=== PATIENT | male | born 1955 | race Caucasian/White ===

== ENCOUNTER 2021-03-14 15:19 | Outpatient (REF) | payer OTHER, MEDICARE, SELFPAY ==
[2021-03-14 16:06] LABS: Alanine Aminotransferase 29 U/L (0-40); Anion Gap 13 (12-20); Aspartate Amino Transferase 27 U/L (5-37); Blood Urea Nitrogen 14 mg/dL (9-16); Carbon Dioxide 26 mmol/L (22-29); Chloride 108 mmol/L (96-108); Estimated Glomerular Filt Rate 60; Potassium 4.6 mmol/L (3.3-5.1); Sodium 142 mmol/L (135-145)
== END 2021-03-14 15:20 | disposition home or self-care (01) ==
LOC: HO.LAB 15:19
PROVIDERS: PCP Family Medicine; Visit Provider Family Medicine
DX: I10 Essential (primary) hypertension (principal); I25.10 Atherosclerotic heart disease of native coronary artery without angina pectoris; K75.81 Nonalcoholic steatohepatitis (NASH)
CPT/HCPCS: 36415; 80051; 82565; 84450; 84460; 84520

== ENCOUNTER 2021-10-12 10:45 | Outpatient (RCR) | payer OTHER, SELFPAY ==
[2021-09-29 14:36] VITALS: BMI 31.5
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
--- NOTE | 2021-10-02 15:20 | PC.NURSE ---
Case opened in treatment team.
--- NOTE | 2021-10-03 11:40 | PC.NURSE ---
I received a call from pt. He sounded overwhelmed and a bit angry and reported feeling emotionally triggered after a peer and another clinician were staring at him on the screen while he was fumbling to try to exit the group (as he was in the wrong online group). He reported rage and expressed concerns about his ability to continue in the program given how easily triggered he is. He became tearful and spoke about excessive daily energy spent on containing his anger after feeling triggered. He also shared that he thinks he knows another client (the one that he felt was staring at him) from AA meetings a long time ago, and asked if he could not be in a morning process group with her. (He was initially very reluctant to tell me the nature of his relationship with the person, citing AA confidentiality). I explained how the groups work, and that if there are less than 12 clients, the process group might be combined. I offered to refer pt to another PHP, but he said he wants to wait it out and see how he feels. I also explained that its impossible to tell who is giving who eye contact on the screen, as each person is looking at an image on screen rather than an actual person, and he reported feeling greatly comforted by this. Throughout the discussion, pt repeatedly attempted to reassure me that he wont lash out at anyone despite feeling rage. Pt agreed to take the rest of the group off to ground self, and said he'd return to the 3rd group.
--- NOTE | 2021-10-05 15:36 | P.PNPSP_ITS ---
Subjective Subjective Date of Service: 10/05/21 Reason For Visit: PTSD Guardianship: No Medical Problems Affecting Mental Status: No Interim History: Describes mood as ?I am good?. Reports finding PHP helpful. Denies any thoughts of harm to self or others. Is not interested in any psychiatric medications at this time, but would rather try therapy 1st. Medication Compliance: Yes (Takes medical medications as prescribed, currently not on any psychiatric meds) Side effects from medications: No Attending Groups: Yes Review of Systems Acute medical concerns: No Medical Review of Systems: unchanged Review of Systems Review of Systems Yes all other systems are reviewed and are negative Constitutional: Reports no additional constitutional complaints Mental Status Exam Mental Status Exam Narrative: Well developed, overweight male, in NAD. No abnormal movements noted, no tics/tremors. Cooperative and attentive throughout encounter. Patient Appearance: Appropriate Patient Orientation: Person, Place, Time and Situation Level of Consciousness: Appropriate Patient Behavior: Cooperative and Good Eye Contact Mood Description: Calm Affect Description: Appropriate and Anxious Patient Cognition Impaired: No Ability to Follow Directions: Good Speech Pattern: Clear, Appropriate, Coherent and Excessive Memory Description: Intact Hallucinations: None Thought Process: Intact Thought Content: positive for Intact Depressive Symptoms: Increased Irritability, Loss of Int. in Activity, Feelings of Guilt and Unhappiness Judgement: Fair Diagnostics Vital Signs (24Hr): BMI result Body Mass Index 31.5 Assessment & Plan Assessment & Plan (1) Post-traumatic stress disorder, chronic: Status: Acute Code(s): F43.12 - Post-traumatic stress disorder, chronic Assessment and Plan: Patient reports he feels his symptoms are improved since last week. He reports that he has found it difficult to adjust to format of PHP, but now he is beginning to feel more comfortable. He says that he had a rough day in the program yesterday, but is feeling more even today. He states that he is working hard on his responses and behavior. No reported outbursts of anger. He states that he feels his symptoms are not really any type of depression or other mood disorder but are more trauma related. No thoughts of SI, no thoughts of harm to self or others at this time, no safety concern. Denies nightmares, flash backs at this time. Discussed psychiatric medications. He states he is not opposed to medications, but that he wishes to try therapy 1st. Discussed natural treatments, including supplements such as omega-3 fatty acid, Saint Dylan's Wort, etc. he states he has taken supplements in the past, and will research this further. (2) Persistent mood [affective] disorder, unspecified: Status: Acute Code(s): F34.9 - Persistent mood [affective] disorder, unspecified Plan 1. Continue with current [facility] plan of care. 2. Follow-up as per protocol. Patient educated on: diagnosis, medication risk/benefits and therapeutic strategies Informed Consent: understands Reason for contiued partial hosp. stay Substantial Risk for: inability to function and rapid decompensation Certification I certify that partial hospital treatment is medically necessary due to the symptoms and problems resulting from the patient's mental illness and the failure to treat the patient at the partial hospital level of care would likely result in the patient requiring inpatient psychiatric care which could not be prevented at a less intensive level of care. I spent minutes with the patient and/or on the patient floor today, greater than?50% of which was spent counseling/coordinating care. Discharge Plan Discharge Attending provider: Wesley Craft Medications: No Action metoprolol succinate 50 mg Tablet Extended Release 24 Hr 50 mg PO DAILY 0RF aspirin 81 mg Tablet 81 mg PO DAILY 0RF Telehealth Telehealth Location of provider rendering services: practice address Location of patient: address on file Patient Identification confirmed using: Name, : Yes Telehealth method: video Patient verbally consented to treatment: Yes Patient verbally consented to billing insurance company: Yes Patient informed of any privacy concerns related to visit: Yes Time spent with patient (mins): 20
--- NOTE | 2021-10-12 12:07 | PC.NURSE ---
Patient scheduled to discharge for PHP today. Denied SI or thoughts to harm himself. Reviewed patient medications with patient. He reports taking medications as prescribed.
--- NOTE | 2021-10-12 16:02 | PC.NURSE ---
I called pt several times to review discharge info and he did not answer or call back. I left him a message to please call.
--- NOTE | 2021-10-12 16:04 | PC.NURSE ---
I left a message for Atul Coleman, [employer], ([phone]) pt's therapist, letting him know of pt's successful discharge from [facility], and about his clinical presentation and status. I let him know that pt has not responded to my efforts to review discharge material and discuss aftercare plans. I gave him the number for WILLIE Rosenbaum, DBT coordinator at [facility], and recommended this for the client should decide he is interested.
--- NOTE | 2021-10-12 17:09 | P.PNPSP_ITS ---
Subjective Subjective Date of Service: 10/12/21 Reason For Visit: PTSD Guardianship: No Medical Problems Affecting Mental Status: No Interim History: Patient reports that he is doing better , with improved mood and less anxiety. Reports that he feels he has benefited from being in [facility] program, but feels now he is ready to discharge. No thoughts of harm to self or others, no safety concerns. Attending Groups: Yes Review of Systems Acute medical concerns: No Medical Review of Systems: unchanged Review of Systems Review of Systems Yes all other systems are reviewed and are negative Constitutional: Reports no additional constitutional complaints Mental Status Exam Mental Status Exam Narrative: Met with patient on telephone, voice was articulate, normal rate and volume. No evidence of any type of distress. Appeared to have stable mood at this time. Denies any thought of harm to self or others, no safety concern. Patient Orientation: Person, Place, Time and Situation Level of Consciousness: Appropriate Patient Behavior: Cooperative Mood Description: Calm Affect Description: Appropriate Patient Cognition Impaired: No Ability to Follow Directions: Excellent Speech Pattern: Clear, Appropriate and Coherent Memory Description: Intact Hallucinations: None Thought Process: Intact, Goal Oriented and Linear Thought Content: positive for Intact, positive for Goal Oriented and positive for Linear Judgement: Good Diagnostics Vital Signs (24Hr): BMI result Body Mass Index 31.5 Assessment & Plan Assessment & Plan (1) Post-traumatic stress disorder, chronic: Status: Acute Code(s): F43.12 - Post-traumatic stress disorder, chronic Assessment and Plan: Patient reports overall feeling much better, states that his anxiety has lessened considerably. He feels stable for discharge at this time. He did have several questions regarding use of benzodiazepines versus SSRIs to help manage feeling anxious, with angry outbursts at times. Use of each medication was discussed fully, including risks, benefits, alternatives. He states that he is considering speaking with his therapist further about this. Currently takes no medications at this time, and wishes to explore it further in therapy as outpatient. (2) Persistent mood [affective] disorder, unspecified: Status: Acute Code(s): F34.9 - Persistent mood [affective] disorder, unspecified (3) Alcohol use disorder, severe, in sustained remission: Status: Acute Code(s): F10.21 - Alcohol dependence, in remission Plan 1. Patient appears stable for discharge from [facility] at this time. 2. Patient to follow-up with outpatient providers going forward. Patient educated on: diagnosis, medication risk/benefits and therapeutic strategies Informed Consent: understands Reason for contiued partial hosp. stay Substantial Risk for: stable for discharge Certification I certify that partial hospital treatment is medically necessary due to the symptoms and problems resulting from the patient's mental illness and the failure to treat the patient at the partial hospital level of care would likely result in the patient requiring inpatient psychiatric care which could not be prevented at a less intensive level of care. I spent minutes with the patient and/or on the patient floor today, greater than?50% of which was spent counseling/coordinating care. Discharge Plan Discharge Attending provider: Wesley Craft Medications: No Action metoprolol succinate 50 mg Tablet Extended Release 24 Hr 50 mg PO DAILY 0RF aspirin 81 mg Tablet 81 mg PO DAILY 0RF Stand Alone Forms: Patient Portal Discharge page Telehealth Telehealth Location of provider rendering services: practice address Location of patient: address on file Patient Identification confirmed using: Name, : Yes Telehealth method: voice only Patient verbally consented to treatment: Yes Patient verbally consented to billing insurance company: Yes Patient informed of any privacy concerns related to visit: Yes Time spent with patient (mins): 15
== END 2021-10-12 23:59 | disposition home or self-care (01) ==
LOC: HO.PHPA 10:45
PROVIDERS: Visit Provider Psychiatry & Neurology Psychiatry
DX: F43.12 Post-traumatic stress disorder, chronic (principal); F34.9 Persistent mood [affective] disorder, unspecified; F10.21 Alcohol dependence, in remission
CPT/HCPCS: 90791; 90853

== ENCOUNTER 2021-10-12 16:46 | Outpatient (REF) | payer OTHER, SELFPAY ==
[2021-10-12 17:49] LABS: Anion Gap 14 (12-20); Blood Urea Nitrogen 14 mg/dL (9-16); Carbon Dioxide 30 mmol/L (22-29); Chloride 104 mmol/L (96-108); Estimated Glomerular Filt Rate > 60; Potassium 4.6 mmol/L (3.3-5.1); Sodium 143 mmol/L (135-145)
== END 2021-10-12 16:47 | disposition home or self-care (01) ==
LOC: HO.LAB 16:46
PROVIDERS: PCP Family Medicine; Visit Provider Family Medicine
DX: I10 Essential (primary) hypertension (principal)
CPT/HCPCS: 36415; 80051; 82565; 84520

== ENCOUNTER 2022-01-02 15:02 | Outpatient (REF) | payer OTHER, SELFPAY ==
--- NOTE | ~2022-01-02 | XR_ITS ---
EXAMINATION: XR SHOULDER, LEFT CLINICAL INFORMATION: Left shoulder pain COMPARISON: None TECHNIQUE: AP external rotation, Grashey, scapular Y, and axillary views of the left shoulder. FINDINGS: The bones and soft tissues are normal. No fracture. There is mild loss of glenohumeral and AC joint space with periarticular spurring. No bony erosive changes seen. No soft tissue calcification or soft tissue swelling. No visible acute fracture or dislocation. XR/XR shoulder LT min 2V IMPRESSION: Mild degenerative changes left shoulder.
== END 2022-01-02 15:03 | disposition home or self-care (01) ==
LOC: HO.XRAY 15:02
PROVIDERS: PCP Family Medicine; Visit Provider Family Medicine
DX: M25.512 Pain in left shoulder (principal)
CPT/HCPCS: 73030

== ENCOUNTER 2022-06-01 13:20 | Outpatient (REF) | payer OTHER, SELFPAY ==
--- NOTE | ~2022-06-01 | XR_ITS ---
EXAMINATION: XR CERVICAL SPINE CLINICAL INFORMATION: Neck pain COMPARISON: Previous x-ray April 2017 TECHNIQUE: 6 views of the cervical spine, inclusive of bilateral oblique views, were obtained. FINDINGS: There are new postsurgical changes from ACDF at C5-C6 and C6-C7. Mild 2 mm anterior subluxation of C3 with respect to C4. Bone alignment is otherwise normal. No fracture or dislocation. Orthopedic hardware appears intact. Mild degenerative spondylosis and disc space narrowing at C3-C4. Mild degenerative spondylosis at C4-C5. Right-sided neuroforaminal narrowing from bony osteophyte from C3-C4 to C6-C7. Left-sided neuroforaminal narrowing from bony osteophyte from C2-C3 to C6-C7. Question slight fullness of the prevertebral soft tissues anterior to the lower cervical spine measuring maximum 2.4 cm. XR/XR cervical spine min 6V IMPRESSION: New postsurgical changes from ACDF at C5-C6 and C6-C7. Multilevel degenerative changes.
[2022-06-01 15:07] LABS: Anion Gap 16 (12-20); Blood Urea Nitrogen 15 mg/dL (9-16); Carbon Dioxide 28 mmol/L (22-29); Chloride 103 mmol/L (96-108); Estimated Glomerular Filt Rate > 60; Potassium 4.7 mmol/L (3.3-5.1); Sodium 142 mmol/L (135-145)
== END 2022-06-01 13:21 | disposition home or self-care (01) ==
LOC: HO.XRAY 13:20
PROVIDERS: PCP Family Medicine; Visit Provider Family Medicine
DX: M54.2 Cervicalgia (principal); I10 Essential (primary) hypertension
CPT/HCPCS: 36415; 72052; 80051; 82565; 84520

== ENCOUNTER 2023-04-08 11:43 | Outpatient (REF) | payer OTHER, SELFPAY ==
[2023-04-08 14:36] LABS: Alanine Aminotransferase 27 U/L (0-40); Anion Gap 11 (12-20); Aspartate Amino Transferase 23 U/L (5-37); Blood Urea Nitrogen 16 mg/dL (9-16); Carbon Dioxide 28 mmol/L (22-29); Chloride 107 mmol/L (96-108); Cholesterol 173 mg/dL (<200); Estimated Glomerular Filt Rate > 60; Glucose Fasting 127 mg/dL (60-99); HDL Cholesterol 37 mg/dL (>40); LDL Cholesterol Calculated 92 mg/dL (<100); Potassium 4.3 mmol/L (3.3-5.1); Sodium 142 mmol/L (135-145); Triglycerides 220 mg/dL (<150)
== END 2023-04-08 11:44 | disposition home or self-care (01) ==
LOC: HO.LAB 11:43
PROVIDERS: PCP Family Medicine; Visit Provider Family Medicine
DX: I10 Essential (primary) hypertension (principal); E78.00 Pure hypercholesterolemia, unspecified
CPT/HCPCS: 36415; 80051; 80061; 82565; 82947; 84450; 84460; 84520

== ENCOUNTER 2024-02-27 08:54 | Outpatient (REF) | payer OTHER, SELFPAY ==
[2024-02-27 10:07] LABS: Alanine Aminotransferase 36 U/L (0-40); Anion Gap 11 (12-20); Aspartate Amino Transferase 31 U/L (5-37); Blood Urea Nitrogen 12 mg/dL (9-16); Carbon Dioxide 30 mmol/L (22-29); Chloride 107 mmol/L (96-108); Cholesterol 185 mg/dL (<200); Estimated Glomerular Filt Rate > 60; Glucose Fasting 115 mg/dL (60-99); HDL Cholesterol 39 mg/dL (>40); LDL Cholesterol Calculated 114 mg/dL (<100); Potassium 4.5 mmol/L (3.3-5.1); Sodium 143 mmol/L (135-145); Triglycerides 163 mg/dL (<150)
== END 2024-02-27 08:55 | disposition home or self-care (01) ==
LOC: HO.LAB 08:54
PROVIDERS: PCP Family Medicine; Visit Provider Family Medicine
DX: I10 Essential (primary) hypertension (principal); R73.09 Other abnormal glucose; E78.00 Pure hypercholesterolemia, unspecified
CPT/HCPCS: 36415; 80051; 80061; 82565; 82947; 84450; 84460; 84520

== ENCOUNTER 2024-09-15 16:09 | Outpatient (REF) | payer OTHER, SELFPAY ==
--- NOTE | ~2024-09-15 | XR_ITS ---
EXAMINATION: XR CHEST CLINICAL INFORMATION: COUGH, WHEEZE COMPARISON: 05/28/2011. TECHNIQUE: 2 views of the chest were obtained. FINDINGS: The cardiac, hilar, and mediastinal contours are normal. There is prominence of the aortic root. The lungs are clear bilaterally. There is no pneumothorax or pleural effusion. There is no focal osseous or soft tissue abnormality. Cervical fusion device is incidentally noted. Degenerative changes of the spine. XR/XR chest 2V IMPRESSION: 1. Prominence of the aortic root. Aneurysm should be considered. 2. Otherwise, no active pulmonary disease. Electronically signed by: Scott Hollingsworth MD 09/15/2024 04:49 PM EST
== END 2024-09-15 16:10 | disposition home or self-care (01) ==
LOC: HO.XRAY 16:09
PROVIDERS: PCP Family Medicine; Visit Provider Family Medicine
DX: R05.9 Cough, unspecified (principal); R06.2 Wheezing
CPT/HCPCS: 71046

== ENCOUNTER → 2024-09-15 16:15 | Outpatient (BNV) | payer OTHER, SELFPAY | PROVIDERS: PCP Family Medicine; Visit Provider Radiology Diagnostic Radiology | DX: R05.9 Cough, unspecified (principal); R06.2 Wheezing | CPT/HCPCS: 71046 ==

== ENCOUNTER 2025-04-14 10:39 | Outpatient (REF) | payer OTHER, SELFPAY ==
--- OUTSIDE RECORDS SUMMARY | 2024-09-17 06:00 | XMS_ITS ---
Author Organization [facility] Address [address] [facility] [address] [place] [address] Care Team Providers Care Map Compiler Name Role Phone Gonzalo (RETIRED) Tre SMITH Primary Care Provider Unavailable Nilesh Pond [phone] REASON FOR VISIT Patient presents today for a colon screening Encounters Encounter Location Date Provider Diagnosis [facility] [address] [address] 09/17/2024 Nilesh Pond Plan Of Treatment No Information Progress Notes * MOISÉS HESSDOB:[birth year] (69 yo M)Acc No.[id number]:09/17/2024 Progress Notes Patient: MOISÉS HARMAN Provider: Shabbir Pond MD :1955 A ge:68 Y S ex:Male Date:09/17/2024 Address:[address] [place], [place] [id number] Pcp:Tre Sánchez (RETIRED) MD Subjective: * Chief Complaints: * 1 . Patient presents today for a colon screening. * Medical History: Objective: * Vitals: Assessment: Plan: * Treatment: * * The named appointment provid er may or may not be the originator of this progress note, and it is not deemed complete until electronically signed by the appointment provider. Sign off status: Pending * Provider: Shabbir Pond MD Date: 0 09/17/2024 Generated for Printi ng/Fanig/eTransmitting on: 0 04/14/2025 02:33 PM EDT
[2025-04-14 11:33] LABS: MANUAL DIFF FLAG NO
[2025-04-14 12:13] LABS: Hematocrit 45.9 % (42.0-52.0); Hemoglobin 15.4 g/dl (14.0-18.0); Imm Gran Abs Auto 0.02 X10*3/uL (0.00-0.03); Imm Gran Pct Auto 0.3 % (0.0-0.4); Lymphocytes Absolute Auto 1.2 X10*3/uL (1.2-4.9); Mean Corpuscular HGB Conc 33.6 g/dl (31.0-36.0); Mean Corpuscular Hemoglobin 30.7 pg (27.0-33.0); Mean Corpuscular Volume 91.6 fL (80.0-98.0); NRBC Abs Auto 0.000 X10*3/uL (0.0-0.012); NRBC Pct Auto 0.0 /100WBC (0.0-0.2); Platelet Count 161 X10*3/uL (160-400); Red Blood Count 5.01 X10*6/uL (4.60-5.80); White Blood Count 5.9 X10*3/uL (4.8-10.8)
[2025-04-14 12:25] LABS: Total Hemoglobin (HGBA1C) 4002.2404 umol/L
[2025-04-14 12:50] LABS: Alanine Aminotransferase 33 U/L (0-40); Albumin Level 4.5 g/dL (3.5-5.0); Alkaline Phosphatase 68 U/L (39-117); Anion Gap 12 (12-20); Aspartate Amino Transferase 46 U/L (5-37); Blood Urea Nitrogen 19 mg/dL (9-16); Calcium 9.3 mg/dL (8.4-10.2); Carbon Dioxide 30 mmol/L (22-29); Chloride 105 mmol/L (96-108); Cholesterol 147 mg/dL (<200); Estimated Glomerular Filt Rate > 60; HDL Cholesterol 35 mg/dL (>40); Potassium 5.1 mmol/L (3.3-5.1); Sodium 142 mmol/L (135-145); Total Protein 7.5 g/dL (6.5-8.0); Triglycerides 187 mg/dL (<150)
--- OUTSIDE RECORDS SUMMARY | 2025-04-14 14:33 | XMS_ITS | Patient Health Record ---
Author Organization [facility] Address [address] [place] [phone] Care Team Providers Care Blend Technician Name Role Phone Gonzalo (RETIRED) Tre SMITH Primary Care Provider Unavailable Nilesh Pond Unavailable [phone] Reason For Referral No Information Medications Medication SIG (Take, Route, Fr equency, Duration) Notes Start Date End Date Status Aspir-81 Active guanFACINE HCl Activ e buPROPion HCl Active Atorvastatin Calcium Active Problems Problem Type SNOMED Code ICD Code Onset Dates Problem Status W/U Status Risk Notes Problem [id number] Encounter for screening for malignant neoplasm of colon (Z12.11) Active confirmed Problem Screening for malignant neoplasm of rectum (835443588) Encounter for screening for malignant neoplasm of rectum (Z12.12) Active confirmed Problem 37858140 Preprocedural examination (Z01.818) Active confirmed Problem [id number] Long-term use of aspirin therapy (Z79.82) Active confirmed Encounters Encounter Location Date Provider Diagnosis [facility] [address] [place] [phone] 09/16/2024 Nilesh Pond Plan Of Treatment Future Test Test Name Order Date COLONOSCOPY 03/22/2016 Insurance Providers Payer Name Payer Address Payer Phone Subscriber Number Group Number Insured Name Patient Relationship to Insured Coverage Start Date Coverage End Date [employer] ([employer]) [address] [place] [address] [id number] MOISÉS HESS Self - patient is the insured Medical (General) History Medical History History ICD Code VT--11/2014--had a cardiac cath--no stent s--fine since Past hx of hepatitis B in the Negative colonoscopy at age 48 Denies DM,CVA,Lung disease,renal disease Hyperlipidemia Sleep apnea--has a CPAP [place]---he has lost 25# and is not using the CPAP very much
--- OUTSIDE RECORDS SUMMARY | 2025-04-14 14:33 | XMS_ITS | Patient Health Record ---
Author Organization [facility] Address [address] [facility] [place] [address] Care Team Providers Care Hollow Handle Bench Worker Name Role Phone Tre Sánchez MD Primary Care Provider UnavailVitor Yang Unavailable [phone] Reason For Referral No Information Medications Medication SIG (Take, Route, Frequency, Duration) Notes Start Date End Date Status Aspir-81 Active Atorvastatin Calcium 10 MG 1 tablet Oral ly Once a day Active OT Refurbishment Refurbish with full length extensions 02/13/2017 Active Social History Tobacco Use: Social History Observation Description Date Details (start date - stop date) Never Smoker NA - NA Tobacco Use/Smoking Question Answer Notes Are you a: nonsmoker Alcohol Screen Question Answer Notes Did you have a drink containing alcohol in the p ast year? No Points 0 Interpretation Negative Tobacco use other than smoking: Question Answer Notes Are you an other tobacco user? No Plan Of Treatment Pending Test Test Name Order Date 36132-Kmff, 1-14 02/13/2017 Insurance Providers Payer Name Payer Address Payer Phone Subscriber Number Group Number Insured Name Patient Relationship to Insured Coverage Start Date Coverage End Date [facility] [address] [place] [address] [phone] [id number] [address] Petty Self - patient is the insured Medical (General) History Medical History History ICD Code Back,Hip,and Knee pain CAD (Cholesterol) Headaches Heart disease Hepatitis B Lyme disease Psoriasis Measles Surgical History Surgery Date(Month/Year) [facility] Heart attack 2014
[2025-04-15 04:51] LABS: HBS Num1 43.42 mIU/mL (0-7.99); HBc Num1 8.84 S/CO (0.00-0.79); HBsAGNum1 0.47 S/CO (0.00-0.99); HIV Num 1 0.06 S/CO (0.00-0.99); Hepatitis A Antibody IgM 0.14 Index (0-0.79); Hepatitis B Surface Antigen Negative (Negative); ~HepC Num1 0.07 S/CO (0.00-0.79); ~Hepatitis A Antibody IgM Nonreactive (Nonreactive); ~Hepatitis B Surface Antibody REACTIVE (Nonreactive); ~Hepatitis C Antibody Nonreactive (Nonreactive)
[2025-04-15 05:03] LABS: Syphilis Screen Nonreactive (Nonreactive)
[2025-04-15 06:31] LABS: HBc Num2 8.34 S/CO; HBc Num3 8.47 S/CO
== END 2025-04-14 10:40 | disposition home or self-care (01) ==
LOC: HO.LAB 10:39
PROVIDERS: PCP Student in an Organized Health Care Education/Training Program; Visit Provider Student in an Organized Health Care Education/Training Program
DX: I25.10 Atherosclerotic heart disease of native coronary artery without angina pectoris (principal); I10 Essential (primary) hypertension; B19.10 Unspecified viral hepatitis B without hepatic coma
CPT/HCPCS: 36415; 80053; 80061; 82306; 83036; 84443; 85025; 86704; 86706; 86709; 86780; 86803; 87340; 87389; 96127

== ENCOUNTER 2025-04-14 10:39 | Outpatient (AMB) | payer OTHER, SELFPAY ==
--- NOTE | 2025-04-14 10:43 | A.OFFPC_ITS ---
Vital Signs 04/14/25 10:47 Height 5 ft 10 in Weight 208 lb BMI 29.8 BP 130/92 H Blood Pressure Location Rt brachial Position Sitting Respiration 18 Pulse 63 Pulse Source Pulse Oximeter Temp 98.2 F Temp Source Temporal Artery Scan Pulse Oximetry (%) 99 Oxygen Delivery Method Room Air Intake Visit Reasons: 4 month followup-rosalva pt - see comments Tire Installer Required: No Accompanied by: Self / Same As Patient Allergies No Known Allergies Allergy (Verified 04/14/25 10:43) Tobacco use date assessed: 04/14/25 Fall risk assessment: No Falls in past year Last assessed Fall Risk: 04/14/25 Dental Screening Dental Screen Date: 04/14/25 Did you have a dental visit in the last 12 months?: Yes Was dental information given to patient?: Patient has dentist HPI HPI Comments History of Present Illness Details The patient is a 69-year-old male presenting for a routine follow-up and wellness examination. During the conversation, the patient reported a history of essential hypertension, which he has managed without actively monitoring due to episodic anxiety that causes fluctuations in readings. He has a history of a myocardial infarction in 2014, for which he did not have any stents placed but was advised on lifelong coronary artery disease management. His current symptoms are limited to general aches and pains, which he attributes to known sources without major concern. He denies any current chest pain, shortness of breath, nausea, or headaches and reports stable cardiovascular health with the current medications. The patient's history of substance use includes significant alcohol and cocaine use in the past, from 1970 until he achieved sobriety in September 1987. He has been clean since then. The patient's overall health concerns largely revolve around adherence to prescribed medication and preventative measures like the colonoscopy, which he had to cancel previously. 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 - Housing: Stable; with children . - Past Substance Use: Alcohol and cocain e (sobriety since September 1987). - Current Use of CBD products. [facility] Medical History (Updated 04/14/25 @ 11:06 by Christian Blackwell MD) Hepatitis B Coronary artery disease NSTEMI (non-ST elevated myocardial infarction) History of headache History of Lyme disease History of left shoulder fracture Psoriasis Hypertension Myocardial infarct (~2014) Surgical History (Updated 04/12/25 @ 17:14 by Annalee Saucedo) History of colonoscopy (~06/15/16) History of back surgery (~10/2018) Social History Household Members: Spouse and Other Household Members Other:: Youngest daughter Housing: House Patient Tobacco Use Status: Never used Tobacco e-Cigarette/Vaping Use: Never Used service: No Current occupational status: retired Questionnaire PHQ-9 Over the last 2 weeks, how often have you been bothered by any of the following problems? 1. Little interest or pleasure in doing things: not at all 2. Feeling down, depressed, or hopeless: not at all 3. Trouble falling or staying asleep, or sleeping too much: not at all 4. Feeling tired or having little energy: not at all 5. Poor appetite or overeating: not at all 6. Feeling bad about yourself - or that you are a failure or have let yourself or your family down: not at all 7. Trouble concentrating on things, such as reading the newspaper or watching television: not at all 8. Moving or speaking so slowly that other people could have noticed. Or the opposite - being so fidgety or restless that you have been moving around a lot more than usual: not at all 9. Thoughts that you would be better off or of hurting yourself in some way: not at all Total score: 0 Depression Screening Interpretation: Negative Depression Screening Done: Yes 34117 - PHQ-9 Billing: Yes Source: Developed by Drs. Nilesh Ellis, Nora Gifford, Sky Rivera and colleagues, with an educational jose from [employer]. Thrive Questionnaire Date Thrive assessed: 04/14/25 I am a: Patient What is your living situation today?: I have a steady place to live Within the past 12 months, did the food you bought not last and you didn't have the money to get more?: Never true Within the past 12 months, did you worry whether your food would run out before you got money to buy more?: Never true Do you have trouble paying for medicines?: No Do you have trouble getting transportation to medical appointments?: No Do you have trouble paying your heating and electricity bill?: No Do you have trouble taking care of your child, family member or friend?: No Do you have trouble with day-to-day activities such as bathing, preparing meals, shopping, managing finances, etc.?: No Are you currently unemployed and looking for a job?: No Are you interested in more education?: No THRIVE Score: 0 AUDIT C Alcohol Use Questionnaire (AUDIT-C) 1. How often do you have a drink containing alcohol?: Never 3. How often do you have six or more drinks on one occasion?: Never Total Score: 0 Score Reviewed/Action Taken: Yes FOX-7 AMB Questionnaire FOX-7 Date FOX - 7 assessed: 04/14/25 Feeling nervous, anxious, or on edge: 0 = Not at all Not being able to stop or control worryin = Not at all Worrying too much about different things: 0 = Not at all Trouble relaxin = Not at all Being so restless that it is hard to sit still: 0 = Not at all Becoming easily annoyed or irritable: 0 = Not at all Feeling afraid as if something awful might happen: 0 = Not at all Total FOX-7 score (0-4 normal; 5-9 mild; 10-14 moderate; 15-21 severe): 0 Source: Developed by Drs. Nilesh Ellis, Nora Gifford, Sky Rivera and colleagues, with an educational jose from [employer]. FOX-7 Assessment Billing FOX-7 Assessment Tool: FOX-7 Assessment 76101 Review of Systems Const Details: - Cardiovascular: Denies chest pain, fluttering, or shortness of breath. - Gastrointestinal: Denies nausea and vomiting. - Neurological: Denies headaches. All systems reviewed & are unremarkable except as reviewed in HPI and above Physical exam (Primary Care) Vital Signs: Last Vital Signs Temp 98.2 F 04/14/25 10:47 Pulse 63 04/14/25 10:47 Resp 18 04/14/25 10:47 BP 130/92 H 04/14/25 10:47 Pulse Ox 99 04/14/25 10:47 Oxygen Delivery Method Room Air 04/14/25 10:47 BMI result Body Mass Index 29.8 Tobacco/Smoking Status: Tobacco use Status Tobacco use date assessed 04/14/25 04/14/25 10:50 Patient Tobacco Use Status Never used Tobacco 04/14/25 10:50 e-Cigarette/Vaping Use Never Used 04/14/25 10:50 PHQ-9: PHQ-9 Score PHQ-9: Total score 0 04/14/25 11:00 Depression Screening Interpretation: Negative Thrive Assessment: Date of Thrive Assessment Date Thrive assessed 04/14/25 04/14/25 11:00 Const Other: General: Alert and oriented, Well nourished, No acute distress. Eye: Pupils are equal, round and reactive to light, Intact accommodation, Extraocular movements are intact, Normal conjunctiva, Vision unchanged. HENT: Normocephalic, Atraumatic, Tympanic membranes are clear, Normal hearing, Oral mucosa is moist, No pharyngeal erythema, Ear canals patent. Respiratory: Lungs CTA bilaterally, No wheeze, Respirations are non-labored. Cardiovascular: Regular rate, Regular rhythm, S1 auscultated, S2 auscultated, No murmur, Good pulses equal in all extremities, Normal peripheral perfusion, No edema. Gastrointestinal: Soft, Non-tender, Non-distended, Normal bowel sounds, No organomegaly. Musculoskeletal: Normal range of motion, Normal strength, No tenderness, No swelling, No deformity, Normal gait. Integumentary: Warm, Dry, [place], Intact. Neurologic: Alert, Oriented, Normal sensory, Normal motor function, No focal defects, Cranial Nerves II-XII are grossly intact, Normal deep tendon reflexes. Psychiatric: Cooperative, Appropriate mood & affect, Normal judgment. Coding Level of Care Code New Pt Level 3 (07073) New Pt Prev Care >65yr (63383) Diagnoses Coronary artery disease involving [place] heart, unspecified vessel or lesion type, unspecified whether angina present I25.10 Coronary Disease-Associated Artery/Lesion type: unspecified vessel or lesion type [place] vs. transplanted heart: [place] heart Associated angina: unspecified whether angina present Hypertension, unspecified type I10 Hypertension type: unspecified Hepatitis B infection without delta agent without hepatic coma, unspecified chronicity B19.10 Viral hepatitis chronicity: unspecified Hepatic coma status: without hepatic coma Hepatitis delta agent presence: without delta-agent Additional Codes FOX-7 Assessment Billing - FOX-7 Assessment Tool: FOX-7 Assessment 90795 ([id number]) PHQ-9 - 50060 - PHQ-9 Billing: Yes ([id number]) Assessment & Plan Assessment & Plan (1) Coronary artery disease: Comment: - Continue Metoprolol Succinate and Aspirin. - Scheduled regular monitoring and risk reduction strategies. Code(s): I25.10 - Atherosclerotic heart disease of [place] coronary artery without angina pectoris Category: Medical Qualifiers: Coronary Disease-Associated Artery/Lesion type: unspecified vessel or lesion type [place] vs. transplanted heart: [place] heart Associated angina: unspecified whether angina present Qualified Code(s): I25.10 - Atherosclerotic heart disease of [place] coronary artery without angina pectoris (2) Hypertension: Comment: - Continue current management, observation, and lifestyle modifications. - Discuss potential contributing role of anxiety and encourage self-monitoring when calm. Code(s): I10 - Essential (primary) hypertension Category: Medical Qualifiers: Hypertension type: unspecified Qualified Code(s): I10 - Essential (primary) hypertension (3) Hepatitis B: Comment: - Prior history of Hep B and undegone treatment Code(s): B19.10 - Unspecified viral hepatitis B without hepatic coma Category: Medical Qualifiers: Viral hepatitis chronicity: unspecified Hepatic coma status: without hepatic coma Hepatitis delta agent presence: without delta-agent Qualified Code(s): B19.10 - Unspecified viral hepatitis B without hepatic coma Plan: Health Maintenance: - Order and schedule due colonoscopy. - Ordered comprehensive blood work for routine screening. Plan During the visit, I discussed the importance of monitoring blood pressure due to the patient's history of essential hypertension and coronary artery disease. I emphasized maintaining current preventive strategies and medication adherence to manage his coronary artery disease effectively. I explained the purpose and importance of the colonoscopy for early detection of any pathology even if bowel habits appear normal. The patient was informed about the routine blood work we will conduct to establish baseline levels for various important health paramete rs. We addressed his concern about routine cholesterol checks and general wellness monitoring. The positive steps the patient has taken in his past sobriety and active participation in his healthcare were acknowledged and encouraged. Orders: Orders Complete Blood Count Auto Diff Today I10 - Essential (primary) hypertension, I25.10 - Atherosclerotic heart disease of [place] coronary artery without angina pectoris HIV Ab/Ag Today I10 - Essential (primary) hypertension, I25.10 - Atherosclerotic heart disease of [place] coronary artery without angina pectoris Lipid Panel Today I10 - Essential (primary) hypertension, I25.10 - Atheroscl erotic heart disease of [place] coronary artery without angina pectoris Syphilis Screen Today I10 - Essential (primary) hypertension, I25.10 - Atherosclerotic heart disease of [place] coronary artery without angina pectoris Hepatitis A,B,C Profile Today I10 - Essential (primary) hypertension, I25.10 - Atherosclerotic heart disease of [place] coronary artery without angina pectoris Comprehensive Met. Panel Today I10 - Essential (primary) hypertension, I25.10 - Atherosclerotic heart disease of [place] coronary artery without angina pectoris Hemoglobin A1c Today I10 - Essential (primary) hypertension, I25.10 - Atherosclerotic heart disease of [place] coronary artery without angina pectoris TSH reflex Free T4 Today I10 - Essential (primary) hypertension, I25.10 - Atherosclerotic heart disease of [place] coronary artery without angina pectoris Vitamin D 25-OH Total Today I10 - Essential (primary) hypertension, I25.10 - Atherosclerotic heart disease of [place] coronary artery without angina pectoris Referrals Open Access Screening Colonoscopy Referral Z12.11 - Encounter for screening for malignant neoplasm of colon Patient Instructions: - Continue all current medications as prescribed. - Attend the scheduled colonoscopy appointment. - Complete blood work as ordered. - Maintain a healthy lifestyle focusing on diet and exercise to manage hypertension. - Monitor blood pressure at home when relaxed and note any concerns. - Follow-up in six months or sooner if symptoms warrant.
[2025-04-14 10:47] VITALS: BP 130/92; PULSE 63; RESP 18; TEMP 36.8; O2SAT 99; BMI 29.8
== END 2025-04-14 11:07 | disposition home or self-care (01) ==
PROVIDERS: PCP Student in an Organized Health Care Education/Training Program; Visit Provider Student in an Organized Health Care Education/Training Program
DX: Z00.00 Encounter for general adult medical examination without abnormal findings (principal); I25.10 Atherosclerotic heart disease of native coronary artery without angina pectoris; I10 Essential (primary) hypertension; B19.10 Unspecified viral hepatitis B without hepatic coma